=== PATIENT | female | born 1965 | race Caucasian/White ===

== ENCOUNTER 2022-04-19 08:31 | Outpatient (CLI) | payer OTHER, SELFPAY ==
--- NOTE | ~2022-04-19 | MM_ITS ---
EXAMINATION: MM screening [facility] w gretta HISTORY: Screening TECHNIQUE: Craniocaudal and mediolateral oblique 3-D tomosynthesis images were obtained and synthetic 2-D images were generated. CAD analysis was submitted and interpreted. COMPARISON: No prior mammogram is available for comparison at this institution. BREAST PARENCHYMAL COMPOSITION: There are scattered areas of fibroglandular density. FINDINGS: There is no evidence of suspicious mass, calcification, or architectural distortion to sugg est malignancy in either breast. There has been no suspicious interval change. IMPRESSION: 1. No mammographic evidence of malignancy. 2. Recommend routine screening mammography in one year. BI-RADS Category 1: Negative Reviewed, dictated and finalized at location A.
== END 2022-04-19 08:32 | disposition home or self-care (01) ==
LOC: CHSIMG 08:32
PROVIDERS: PCP Family Medicine; Visit Provider Family Medicine
DX: Z12.31 Encounter for screening mammogram for malignant neoplasm of breast (principal)
CPT/HCPCS: 77063; 77067

== ENCOUNTER 2023-05-01 08:17 | Outpatient (CLI) | payer OTHER, SELFPAY ==
--- NOTE | ~2023-05-01 | MM_ITS ---
EXAMINATION: MM screening [facility] w gretta HISTORY: Screening TECHNIQUE: Craniocaudal and mediolateral oblique 3-D tomosynthesis images were obtained and synthetic 2-D images were generated. CAD analysis was submitted and interpreted. COMPARISON: 04/19/2022 FINDINGS: Breast composed of scattered areas of fibroglandular density. There is no evidence of suspi cious mass, calcification, or architectural distortion to suggest malignancy in either breast. There has been no suspicious interval change. IMPRESSION: 1. No mammographic evidence of malignancy. 2. Recommend routine screening mammography in one year. BI-RADS Category 1: Negative Reviewed, dictated and finalized at location A.
== END 2023-05-01 08:18 | disposition home or self-care (01) ==
LOC: CHSIMG 08:18
PROVIDERS: PCP Family Medicine; Visit Provider Family Medicine
DX: Z12.31 Encounter for screening mammogram for malignant neoplasm of breast (principal)
CPT/HCPCS: 77063; 77067

== ENCOUNTER 2024-05-05 12:26 | Outpatient (CLI) | payer OTHER, SELFPAY ==
--- NOTE | ~2024-05-05 | MM_ITS ---
EXAMINATION: MM screening [facility] BI w gretta HISTORY: Screening TECHNIQUE: Craniocaudal and mediolateral oblique 3-D tomosynthesis images were obtained and synthetic 2-D images were generated. CAD analysis was submitted and interpreted. COMPARISON: Comparison to multiple prior studies sequentially, with oldest reviewed study dated 11/2021. BREAST PARENCHYMAL COMPOSITION: There are scattered areas of fibroglandular density. FINDINGS: There is no evidence of suspicious mass, calcification, or architectural distortion to sugg est malignancy in either breast. There has been no suspicious interval change. IMPRESSION: 1. No mammographic evidence of malignancy. 2. Recommend routine screening mammography in one year. BI-RADS Category 1: Negative Reviewed, dictated and finalized at location B.
== END 2024-05-05 12:27 | disposition home or self-care (01) ==
LOC: CHSIMG 12:28
PROVIDERS: PCP Family Medicine; Visit Provider Family Medicine
DX: Z12.31 Encounter for screening mammogram for malignant neoplasm of breast (principal)
CPT/HCPCS: 77063; 77067

== ENCOUNTER 2024-12-18 07:00 | Outpatient (CLI) | payer OTHER, SELFPAY ==
--- NOTE | ~2024-12-18 | XR_ITS ---
XR cervical spine 4-5V 12/18/2024 07:31 Indication: Cervicalgia Procedure: 4 view cervical spine Comparison: No prior studies for comparison. Findings: Straightening of cervical lordosis. There is disc narrowing at C5-6 and C6-7. There is face t hypertrophy at these levels. Lung apices are normal. Odontoid process is is not well visualized on the AP view, although grossly unremarkable on lateral view. No prevertebral soft tissue swelling. The re is multilevel uncinate hypertrophy. Impression: 1: Moderate cervical spondylosis with straightening of cervical lordosis. Reviewed, dictated and finalized at location A. Impression: 1: Moderate cervical spondylosis with straightening of cervical lordosis.
--- OUTSIDE RECORDS SUMMARY | 2024-12-18 07:04 | XMS_ITS ---
Author Organization [facility] [employer] [facility] Address [address] [place] [address] [address] Care Team Providers Care Senior Court Office Assistant Name Role Phone Jamee STOCKTON, Rehan Primary Care Provider Unavailab Chandler Braga Unavailable [phone] REASON FOR VISIT Prescription Request Social History Sex Assigned At : Social History Observation Description Sex Assigned At Female Encounters Encounter Location Date Provider Diagnosis [facility] [employer] [address] [address] 11/26/2024 Chandler Kan Plan Of Treatment Next Appt Details Provider Name:Chandler alvarez, 12/30/2024 04:30:00 PM, [address] [place] [address], [address], [address], Provider Name:Chandler alvarez, 03/23/2025 01:00:00 PM, [address] [place] [address], [phone], Progress Notes * BRANDY POLLOCKB: 4 (59 yo F)Acc No.[id number]:11/26/2024 Patient: ZOE GIFFORD :1965 A ge:59 Y S ex:Female Address:[facility] [address] , [place], [address] * true * Date: Generated for Printi ng/Faxing/eTransmitting on: 0 12/18/2024 07:04 AM CDT
--- OUTSIDE RECORDS SUMMARY | 2024-12-18 07:05 | XMS_ITS ---
Author Organization [facility] [employer] [facility] Address [address] [place] [address] [address] Care Team Providers Care Warehouse Freight Handler Name Role Phone Jamee STOCKTON, Rehan Primary Care Provider UnavailChandler Babcock Unavailable [phone] REASON FOR VISIT RE:Prescription Request Social History Sex Assigned At : Social History Observation Description Sex Assigned At Female Encounters Encounter Location Date Provider Diagnosis [facility] [email or web address] [place] [id number] [facility] [address] [address] 11/27/2024 Chandler Kan Plan Of Treatment Next Appt Details Provider Name:Chandler alvarez, 12/30/2024 04:30:00 PM, [address] [place] [address], [address], [address], Provider Name:Chandler alvarez, 03/23/2025 01:00:00 PM, [address] [place] [address], [phone], Progress Notes * BRANDY POLLOCKB: 4 (59 yo F)Acc No.[id number]:11/27/2024 Patient: ZOE GIFFORD :1965 A ge:59 Y S ex:Female Address:[facility], [place], [address] * true * Date: Generated for Printi ng/Faxing/eTransmitting on: 0 12/18/2024 07:04 AM CDT
--- OUTSIDE RECORDS SUMMARY | 2024-12-18 07:05 | XMS_ITS ---
Author Organization [facility] [employer] Address [address] [place] [address] Care Team Providers Care Spotlight Operator Name Role Phone Jamee STOCKTON, Rehan Primary Care Provider Unavailab earnestine Lucius Chandler Unavailable [phone] Allergies No Known Allergies Results Component Value Reference Range Notes UDT Reviewed date:12/01/2024 04:17:40 PM Interpretation: Performing Lab: Notes/Report: THC N 0 - 50 ng/ml Cocaine N 0 - 300 ng/ml Amphetamine N 0 - 1000 ng/ml Buprenorphine (BUP) N 0 - 10 ng/ml Secobarbital (Bar) N 0 - 300 ng/ml Oxazepam (BZO) N 0 - 300 ng/ml 5-juwnfetqoi-6,2-ctpgjciq-3,3-diphenylpyrrolidine (ISABELLA P) N 0 - 300 ng/ml Methamphetamine (MET) N 0 - 1000 ng/ml Methylenedioxymethamphetamine (MDMA) N 0 - 500 ng/ml Morphine (MOP 300/BWQ4974) N 0 - 300 ng/ml Methadone (MTD) N 0 - 300 ng/ml Phencyclidine (PCP) N 0 - 25 ng/ml Nortriptyline (TCA) N 0 - 1000 ng/ml Oxycodone N 0 - 300 ng/ml x N 0 - 300 ng/ml REASON FOR VISIT Follow Up, Depression screening positive, Elevated or Hypertensive blood pressure reading, UDT Visit, UDT done Medications Medication SIG (Take, Route, Fr equency, Duration) Notes Start Date End Date Status traZODone HCl 50 MG take 2-3 tablets at bedtime Oral Once a day for 90 days As needed Active Sertraline HCl 100 MG 1 tablet Oral Once a day for 90 days Active Naltrexone HCl 50 MG 1 tablet Orally Onc e a day for 30 days 12/01/2024 01/30/2025 Active Social History Tobacco Use: Social History Observation Description Date Details (start date - stop date) Unknown Sex Assigned At : Social History Observation Description Sex Assigned At Female Tobacco Control (Standard) Question Answer Notes Tobacco use: Uses tobacco in other forms Vital Signs Blood pressure systolic 150 mm Hg 12/02/19 25 Blood pressure diastolic 77 mm Hg 025 Heart Rate 63 /min 12/01/2024 Height 63 in 12/01/2024 Weight 121.4 lbs 12/01/2024 BMI 21.5 kg/m2 12/01/2024 Height-cm 160.02 cm 12/01/2024 Weight-kg 55.07 kg 12/01/2024 Encounters Encounter [facility] Date [facility] [address] [address] 12/01/2024 Chandler Kan Encounter for screen ing for depression Z13.31 ; Encounter for screening for cardiovascular disorders Z13.6 ; Dietary counseling and surveillance Z71.3 ; Nicotine use Z72.0 ; Generalized anxiety disorder F41.1 ; Major depressive disorder, single episode, in full remission F32.5 ; Insomnia due to other mental disorder F51.05 and Alcohol use disorder F10.90 Assessments Encounter Date Diagnosis (ICD Code) Assessment Notes Treatment Notes Treatment Clinical Notes Section Notes 12/01/2024 Encounter for screening for depression (ICD-10 - Z13.31) = 12/01/2024 Encounter for screening for cardiovascular disorders (ICD-10 - Z13.6) = 12/01/2024 Dietary counseling and surveillance (ICD-10 - Z71.3) = 12/01/2024 Nicotine use (ICD-10 - Z72.0) = 12/01/2024 Generalized anxiety disorder (ICD-10 - F41.1) stable = 12/01/2024 Major depressive disorder, single episode, in full remission (ICD-10 - F32.5) = 12/01/2024 Insomnia due to other mental disorder (ICD-10 - F51.05) = 12/01/2024 Alcohol use disorder (ICD-10 - F10.90) attends AA meetings = Plan Of Treatment Medication Medication Name Sig Start Date Stop Date Notes traZODone HCl 50 MG take 2-3 tablets at bedtime Oral Once a day for 90 days Sertraline HCl 100 MG 1 tablet Oral Once a day for 90 days Naltrexone HCl 50 MG 1 tablet Orally Onc e a day for 30 days 12/01/2024 01/30/2025 Treatment Notes Assessment Notes Generalized anxiety disorder stable Alcohol use disorder attends AA meetings Next Appt Details Follow Up: 4 Weeks, Reason: f/u alcohol use d/o Provider Name:Chandler alvarez, 12/30/2024 04:30:00 PM, [address], [place] [address], [place], [address], Provider Name:Chandler alvarez, 03/23/2025 01:00:00 PM, [address], [facility] [address], [place], [address], Progress Notes * BRANDY GONZALEZB: 4 (59 yo F)Acc No.[id number]:12/01/2024 Patient: VALERIE GIFFORDA Provider: RHINA RAMIREZ :1965 A ge:59 Y S ex:Female Date:12/01/2024 Address:[address] [place], [place] [id number] Pcp:Rehan Mancuso MD Subjective: * Chief Complaints: * 1 . Follow Up. 2. Depression screening positive. 3. Elevated or Hypertensive blood pressure reading. 4. UDT Visit. 5. UDT done. * HPI: D epression Screening: ARANZA-7 (2018 Edition) F eeling nervous, anxious, or on edge N ot at all N ot being able to stop or control worrying?Not at all W orrying too much about different things N ot at all T rouble relaxing N ot at all B eing so restless that it is hard to sit still N ot at all B ecoming easily annoyed or irritable N ot at all F eeling afraid as if something awful might happen N ot at all T otal ARANZA-7 Score 0 I f you checked any problems, how difficult have they made it for you to do your work, take care of things at home, or get along with other people? N ot difficult at all I nterpretation of Total ( 0 to 4) No Anxiety [place]-Suicide Severity Rating Scale: Suicide Risk (CSRS-screener) i n the past one month Have you wished you were or wished you could go to sleep and not wake up? N o i n the past one month Have you actually had any thoughts of killing yourself? N o H ave you ever done anything, started to do anything, or prepared to do anything to end your life? N o D epression screening: PHQ-9 L ittle interest or pleasure in doing things?Several days F eeling down, depressed, or hopeless M ore than half the days T rouble falling or staying asleep, or sleeping too much S everal days F eeling tired or having little energy S everal days P oor appetite or overeating M ore than half the days F eeling bad about yourself or that you are a failure, or have let yourself or your family down S everal days T rouble concentrating on things, such as reading the newspaper or watching television N ot at all M oving or speaking so slowly that other people could have noticed; or the opposite, being so fidgety or restless that you have been moving around a lot more than usual N ot at all T houghts that you would be better off or of hurting yourself in some way N ot at all T otal Score 8 I nterpretation M ild Depression Intervention D epression Screening Findings P ositve F ollow-Up for Depression M [facility] treatment assessment, Patient follow-up to return when and if necessary S uicide Risk Assessment Performed 0 12/01/2024 A dditional Evaluation for Depression P sychiatric interview and evaluation N tarah of the standardized tool used for adult depression screening: P atient Health Questionnaire (PHQ-9) H istory of Presenting Problem: Anxiety O nset: years ago. stable. Depression O nset: years ago. has been in remission. She has grief since her brother last week, feels guilt. . Grief f eels grief over her brother's passing. Substance abuse s tarted to drink heavy in 2017 when her dad . Is drinking up to a 12 pack of beer a day. States she is going to AA. Has not had any alcohol since Sunday. Not craving alcohol. . Psychotherapy s he is participating in counseling. Pt was seen today and Urine drug screen was done. * Medical History: P roblems: Generalized anxiety disorder, Insomnia disorder related to another mental disorder, Major depression in full remission, ,. * Social History: T obacco Use: T obacco Control (Standard) T obacco use: U ses tobacco in other forms M igrated Social History: M igrated Social History: Alcohol Intake: None 12/11/2023,Tobacco Years: Former smoker 12/11/2023. * Medications: T aking traZODone HCl 50 MG Tablet take 2 tablets at bedtime Oral Once a day As needed, Taking Sertraline HCl 100 MG Tablet 1 tablet Oral Once a day , Medication List reviewed and reconciled with the patient * Allergies: N .K.D.A. Objective: * Vitals: B P:150/77mm Hg, HR:63/min, Wt:121.4lbs, Wt-k.07 kg, Ht: 63 in, Ht-cm: 160.02 cm, BMI:21.5Index, Body Surface Area: 1.56. * Examination: P sychiatry: Appearance: w ell-groomed, well-nourished, .... Affect / mood: a ppropriate, full range. Attention: g ood. Attitude: c ooperative. Suicidal ideation: n one. Memory status: n o impairment noted. Degree of awareness of surroundings: w ithin normal limits.? Delusions: n o. Hallucinations: n o. Insight: g ood. Intellectual functioning: n o impairment noted. Judgement: g ood. Orientation: a wake, alert and oriented x 3. Perceptual disorders: n o perceptual disorder noted. Psychomotor activity: w ithin normal range. Speech / language: a ppropriate pitch/modulation, clear and coherent, normal rate, volume, and articulation (RVR), proper grammar used. Thought content: a ppropriate. Thought process: i ntact. Assessment: * Assessment: 1. E ncounter for screening for depression - Z13.31 2 . E ncounter for screening for cardiovascular disorders - Z13.6 3 . D ietary counseling and surveillance - Z71.3 4 . N icotine use - Z72.0 5 . G eneralized anxiety disorder - F41.1 6 . M ajor depressive disorder, single episode, in full remission - F32.5 7 . I nsomnia due to other mental disorder - F51.05 ?8. A lcohol use disorder - F10.90 = Plan: * Treatment: 2. M ajor depressive disorder, single episode, in full remission Refill Sertraline HCl Tablet, 100 MG, 1 tablet, Oral, Once a day, 90 days, 90 Tablet, Refills 2.? 3. I nsomnia due to other mental disorder Refill traZODone HCl Tablet, 50 MG, take 2-3 tablets at bedtime, Oral, Once a day As needed, 90 days, 270, Refills 0. 4. A lcohol use disorder Start Naltrexone HCl Tablet, 50 MG, 1 tablet, Orally, Once a day, 30 days, 30 Tablet, Refills 1.? Notes: attends AA meetings * Labs: * L ab: UDT (Collection Date & Time - 12/01/2024) Value Reference Range T HC N 0 - 50 ng/ml * C ocaine N 0 - 300 ng/ml * A mphetamine N 0 - 1000 ng/ml * B uprenorphine (BUP) N 0 - 10 ng/ml * S ecobarbital (Bar) N 0 - 300 ng/ml * O xazepam (BZO) N 0 - 300 ng/ml * 2 -ethylidene-1,1-lctixqzy-9,3-diphenylpyrrolidine (EDDP) N 0 - 300 ng/ml * M ethamphetamine (MET) N 0 - 1000 ng/ml * M ethylenedioxymethamphetamine (MDMA) N 0 - 500 ng/ml * M orphine (MOP 300/CTF1855) N 0 - 300 ng/ml * M ethadone (MTD) N 0 - 300 ng/ml * P hencyclidine (PCP) N 0 - 25 ng/ml * N ortriptyline (TCA) N 0 - 1000 ng/ml * O xycodone N 0 - 300 ng/ml * x N 0 - 300 ng/ml * Procedure Codes: G 8950 PREHTN/HTN BP DOC INDCD F/U DOC, 57521 DRUG TST PRSMV READ INSTRMNT ASSTD DIR OPT OBS, 53833 BEHAV ASSMT W/SCORE & DOCD/STAND INSTRUMENT, G9902 Pt scrn tbco and id as user, G8431 CLIN DEPRESSION SCREEN DOC, G8753 MOST RECENT SYSTOLIC BP >= 140MM HG * Preventive Medicine: Counseling: B P Management: FIRST HYPERTENSIVE BP READING FOLLOW-UP PLAN: F ollow-up 1 month Follow up with your PCP LIFESTYLE RECOMMENDATION: L ifestyle education REFERRAL TO ALTERNATIVE / PRIMARY CARE PROVIDER: R rolly to general medical service WEIGHT REDUCTION RECOMMENDATION: W eight-reducing diet education DIETARY RECOMMENDATIONS: D iet education Dietary Healthy-Heart Diet C ommunication to patient: Counseled the Patient on tobacco use; cessation provided 0 12/01/2024 Date Counseled the Patient on smoking cessation; education provided D ate Counseled the Patient on smoking effects; education provided D ate S moking Cessation counseling done Discuss the importance of quitting smoking. * Follow Up: 4 Weeks (Reason: f/u alcohol use d/o) * Billing Information: * Visit Code: * Procedure Codes: G8950 PREHTN/HTN BP DOC INDCD F/U DOC. 51124 DRUG TST PRSMV READ INSTRMNT ASSTD DIR OPT OBS. 59220 BEHAV ASSMT W/SCORE & DOCD/STAND INSTRUMENT. G9902 Pt scrn tbco and id as user. G8431 CLIN DEPRESSION SCREEN DOC. G8753 MOST RECENT SYSTOLIC BP >= 140MM HG. * Electronic signature of RHINA Fine on 12/18/2024 at 07:04 AM CDT Sign off status: Pending * Provider: RHINA RAMIREZ Date: 0 12/01/2024 Generated for Marie yoder/Elena/Sara on: 0 12/18/2024 07:04 AM CDT History and Physical Notes * HPI (History of Present Illness) Category Sub-Category Detail Notes Category Not es History of Presenting Problem Anxiety Onset: years ago. stable Pt was seen to day and Urine drug screen was done Depression Onset: years ago. garcía s been in remission. She has grief since her brother last week, feels guilt. Substance abuse started to drink leda gill in 2017 when her dad . Is drinking up to a 12 pack of beer a day. States she is going to AA. Has not had any alcohol since Sunday. Not craving alcohol. Psychotherapy she is participating in counseling Grief feels grief over her brother's passing Depression screening PHQ-9 Little inte rest or pleasure in doing things: Several days Feeling down, depressed, or hopeless: Mo re than half the days Trouble falling or staying asleep, or sl eeping too much: Several days Feeling tired or having little energy: S everal days Poor appetite or overeating: More than h tran the days Feeling bad about yourself o r that you are a failure, or have let yourself or your family down: Several days Trouble concentrating on thi ngs, such as reading the newspaper or watching television: Not at all Moving or speaking so slowly that other people could have noticed; or the opposite, being so fidgety or restless that you have been moving around a lot more than usual: Not at all Thoughts that you would be b jairo off or of hurting yourself in some way: Not at all Total Score: 8 Interpretation: Mild Depression Intervention Depression Screening Findings: P ositve Follow-Up for Depression: [facility] treatment assessment, Patient follow-up to return when and if necessary Suicide Risk Assessment Performed: 12/01 Additional Evaluation for Depression: Ps ychiatric interview and evaluation Name of the standardized too l used for adult depression screening:: Patient Health Questionnaire (PHQ-9) Depression Screening ARANZA-7 (2018 Edition) Feelin g nervous, anxious, or on edge: Not at all Not being able to stop or control worryi ng: Not at all Worrying too much about different things : Not at all Trouble relaxing: Not at all Being so restless that it is hard to sit still: Not at all Becoming easily annoyed or irritable: No t at all Feeling afraid as if something awful katy ht happen: Not at all Total ARANZA-7 Score: 0 If you checked any problems, how difficult have they made it for you to do your work, take care of things at home, or get along with other people?: Not difficult at all Interpretation of Total: (0 to 4) No Anx iety [place]-Suicide Severity Rating Scale Suicide Risk (CSRS-screener) in the past one month Have you wished you were or wished you could go to sleep and not wake up?: No in the past one month Have y ou actually had any thoughts of killing yourself?: No Have you ever done anything, started to do anything, or prepared to do anything to end your life?: No Examination Category Sub-Category Detail Notes Category Not es Psychiatry Appearance: well-groomed, well-nourished , ... Attitude: cooperative Psychomotor activity: within normal rang e Attention: good Degree of awareness of surroundings: wit hin normal limits Orientation: awake, alert and kindra ented x 3 Affect / mood: appropriate, full ra nge Speech / language: appropriate pitch/mo dulation, clear and coherent, normal rate, volume, and articulation (RVR), proper grammar used Insight: good Judgement: good Thought process: intact Thought content: appropriate Perceptual disorders: no perceptual diso rder noted Suicidal ideation: none Intellectual functioning: no impairment noted Memory status: no impairment noted Delusions: no Hallucinations: no
--- OUTSIDE RECORDS SUMMARY | 2024-12-18 07:05 | XMS_ITS | Patient Health Record ---
Author Organization [facility] [employer] Address [address] [place] [address] Care Team Providers Care Customs Patrol Officer Name Role Phone Jamee STOCKTON, Rehan Primary Care Provider Unavailab Chandler Braga Unavailable [phone] Migration, Provider Unavailable Unavailable Allergies No Known Allergies Results Component Value Reference Range Notes UDT Reviewed date:12/01/2024 04:17:40 PM Interpretation: Performing Lab: Notes/Report: THC N 0 - 50 ng/ml Cocaine N 0 - 300 ng/ml Amphetamine N 0 - 1000 ng/ml Buprenorphine (BUP) N 0 - 10 ng/ml Secobarbital (Bar) N 0 - 300 ng/ml Oxazepam (BZO) N 0 - 300 ng/ml 0-nsiryofrmf-5,1-txdmikua-5,3-diphenylpyrrolidine (ISABELLA P) N 0 - 300 ng/ml Methamphetamine (MET) N 0 - 1000 ng/ml Methylenedioxymethamphetamine (MDMA) N 0 - 500 ng/ml Morphine (MOP 300/[id number]) N 0 - 300 ng/ml Methadone (MTD) N 0 - 300 ng/ml Phencyclidine (PCP) N 0 - 25 ng/ml Nortriptyline (TCA) N 0 - 1000 ng/ml Oxycodone N 0 - 300 ng/ml x N 0 - 300 ng/ml Reason For Referral No Information Medications Medication SIG (Take, Route, Fr equency, [...] Tobacco use: Uses tobacco in other forms Problems Problem Type SNOMED Code ICD Code Onset Dates Problem Status W/U Status Risk Notes Problem Major depression, single episode, in complete remission (96222089) Major depressive disorder, single episode, in full remission (F32.5) Active confirmed Problem Generalized anxiety disorder (78877523) Generalized anxiety disorder (F41.1) Active confirmed Problem Insomnia disorder related to another mental disorder (78211469) Insomnia due to other mental 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) Active confirmed Vital Signs Heart Rate 63 /min 12/01/2024 Height-cm 160.02 cm 12/01/2024 Blood pressure diastolic 77 mm Hg 12/01/2024 Weight-kg 55.07 kg 12/01/2024 Height 63 in 12/01/2024 Blood pressure systolic 150 mm Hg 12/01/2024 Weight 121.4 lbs 12/01/2024 BMI 21.5 kg/m2 12/01/2024 Encounters Encounter Location Date Provider Diagnosis [facility] [address] [facility] [address] [place] [address] 12/01/2024 Chandler Kan Encounter for screening for depression Z13.31 ; Encounter for screening for cardiovascular disorders Z13.6 ; Dietary counseling and surveillance Z71.3 ; Nicotine use Z72.0 ; Generalized anxiety disorder F41.1 ; Major depressive disorder, single episode, in full remission F32.5 ; Insomnia due to other mental disorder F51.05 and Alcohol use disorder F10.90 [facility] [address] [facility] [address] [place] [address] 09/24/2024 Chandler Kan Generalized anxiety disorder F41.1 ; Major depressive disorder, single episode, in full remission F32.5 and Insomnia due to other mental disorder F51.05 [facility] [address] [facility] [address] [place] [address] 02/02/2024 Provider Migration [facility] [address] [facility] [address] [place] [address] 02/03/2024 Provider Migration [place] [address] [facility] [address] [place] [address] 08/18/2024 Chandlerstephanie Boudreauxoza [place] [address] [facility] [address] [facility] [address] [place] [address] 09/24/2024 Chandler Kan [place] [address] [facility] [address] [place] [address] 10/09/2024 Chandlerstephanie Kan Insomnia due to othe r mental disorder F51.05 and Major depressive disorder, single episode, in full remission F32.5 [facility] [address] [facility] [address] [place] [address] 11/26/2024 Chandlerstephanie Boudreauxoza [facility] [address] [address] 11/27/2024 Chandler Kan Assessments Encounter Date Diagnosis (ICD Code) Assessment Notes Treatment Notes Treatment Clinical Notes Section Notes 09/24/2024 Generalized anxiety disorder (ICD-10 - F41.1) stable 1. Grief and guilt related to brother's : - Patient processing emotions and seeking support from family and friends. Plan: - Encourage patient to continue processing emotions and seeking support. - Monitor for any signs of depression or anxiety that may require further intervention. 2. Anxiety: - Patient reports sertraline is effective. - Does not feel the need for lorazepam refill at this time. Plan: - Continue sertraline as prescribed for anxiety management. 3. Insomnia related to menopause: - Patient reports good response to trazodone for sleep. Plan: - Continue trazodone as prescribed for insomnia management. 4. Medication refills: Plan: - Refill sertraline and trazodone prescriptions for 90 days with one refill. - Ensure prescriptions are sent to [facility] pharmacy for home delivery. 5. Follow-up: - Schedule follow-up appointment in 6 months. - Encourage patient to reach out if any concerns or medication refills are needed before the next appointment. 10/09/2024 Insomnia due to other mental disorder (ICD-10 - F51.05) 12/01/2024 Encounter for screening for depression (ICD-10 - Z13.31) = 10/09/2024 Major depressive disorder, single episode, in full remission (ICD-10 - F32.5) 12/01/2024 Encounter for screening for cardiovascular disorders (ICD-10 - Z13.6) = 09/24/2024 Major depressive disorder, single episode, in full remission (ICD-10 - F32.5) 1. Grief and guilt related to brother's : - Patient processing emotions and seeking support from family and friends. Plan: - Encourage patient to continue processing emotions and seeking support. - Monitor for any signs of depression or anxiety that may require further intervention. 2. Anxiety: - Patient reports sertraline is effective. - Does not feel the need for lorazepam refill at this time. Plan: - Continue sertraline as prescribed for anxiety management. 3. Insomnia related to menopause: - Patient reports good response to trazodone for sleep. Plan: - Continue trazodone as prescribed for insomnia management. 4. Medication refills: Plan: - Refill sertraline and trazodone prescriptions for 90 days with one refill. - Ensure prescriptions are sent to [facility] pharmacy for home delivery. 5. Follow-up: - Schedule follow-up appointment in 6 months. - Encourage patient to reach out if any concerns or medication refills are needed before the next appointment. 09/24/2024 Insomnia due to other mental disorder (ICD-10 - F51.05) 1. Grief and guilt related to brother's : - Patient processing emotions and seeking support from family and friends. Plan: - Encourage patient to continue processing emotions and seeking support. - Monitor for any signs of depression or anxiety that may require further intervention. 2. Anxiety: - Patient reports sertraline is effective. - Does not feel the need for lorazepam refill at this time. Plan: - Continue sertraline as prescribed for anxiety management. 3. Insomnia related to menopause: - Patient reports good response to trazodone for sleep. Plan: - Continue trazodone as prescribed for insomnia management. 4. Medication refills: Plan: - Refill sertraline and trazodone prescriptions for 90 days with one refill. - Ensure prescriptions are sent to [facility] pharmacy for home delivery. 5. Follow-up: - Schedule follow-up appointment in 6 months. - Encourage patient to reach out if any concerns or medication refills are needed before the next appointment. 12/01/2024 Dietary counseling and surveillance (ICD-10 - Z71.3) = 12/01/2024 Nicotine use (ICD-10 - Z72.0) = 12/01/2024 Generalized anxiety disorder (ICD-10 - F41.1) stable = 12/01/2024 Major depressive disorder, single episode, in full remission (ICD-10 - F32.5) = 12/01/2024 Insomnia due to other mental disorder (ICD-10 - F51.05) = 12/01/2024 Alcohol use disorder (ICD-10 - F10.90) attends AA meetings = Plan Of Treatment Next Appt Details Provider Name:Chandler alvarez, 12/30/2024 04:30:00 PM, [address], [place], [address], Provider Name:Chandler alvarez, 03/23/2025 01:00:00 PM, [address], [place], [address], Insurance Providers Payer Name Payer Address Payer Phone Subscriber Number Group Number Insured Name Patient Relationship to Insured Coverage Start Date Coverage End Date [facility] [address] [place] [phone] [id number] ZOE GONZALEZ Self - patient is the insured Medical (General) History Medical History History ICD Code Problems: Generalized anxiety disorder Insomnia disorder related to another men geronimo disorder Major depression in full remission ,
--- OUTSIDE RECORDS SUMMARY | 2024-12-18 07:05 | XMS_ITS | Clinical Summary ---
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 Gender Identity Not on file Sexual Orientation Not on file Plan of Treatment Health Maintenance Due Date Last Done Comments Cervical Cancer Screening Pa p Smear (Age 30 to 64) Every 3 Years 1964 Colorectal Cancer Screening Colonoscopy (10 Years) 1964 Annual Physical 1967 Hepatitis C 1982 DTaP, Tdap and Td Vaccines ( 1 - Tdap) 1983 Cervical Cancer Screening Pa p with HPV Testing (Age 30 to 64) Every 5 Years 1994 Cervical Cancer Screening with HPV 1994 Mammogram Screening 2004 Zoster Vaccines (1 of 2) 2014 COVID-19 Vaccine (2023-2 5 season) 2024 Influenza Adult (#1) 2024 RSV Immunization or 60+ Years (1 - 1-dose 75+ series) 2039 Meningococcal B Vaccine Aged Out No l onger eligible based on patient's age to complete this topic Meningococcal Vaccine Aged Out No den hattie eligible based on patient's age to complete this topic Pneumococcal Vaccine: Pediat rics (0 to 5 Years) and At-Risk Patients (6 to 64 Years) Aged Out No longer eligible b ased on patient's age to complete this topic RSV Immunizations Under 20 Months Aged Out No longer eligible based on patient's age to complete this topic
--- OUTSIDE RECORDS SUMMARY | 2024-12-18 07:05 | XMS_ITS | Clinical Summary ---
Author Organization [facility] Address [address] [place] [address] Care Team Providers Care Fur Dry Cleaner Hand Name Role Phone Rehan Mancuso MD Primary Care Provider [phone] Source Comments [facility],non-owned Affiliates and Associated Physician Practices is amultiple site organization consisting of ambulatory clinics and hospital sitesin [place], [place], [place] and [place]. This disclosure is being madepursuant to the Care Everywhere program and may not contain all information available regarding this patient. Last updated 18.[facility] Allergies Active Allergy Reactions Criticality Noted Date Comments Fluoxetine 05/24/2017 Medications * Be aware that medications may not be up to date on this document. Alwaysverify current medications with the patient. Medication Sig Dispensed Refills Start Date End Date Status SERTRALINE HCL PO Active TRAZODONE HCL PO Active LORAZEPAM PO Active Social History Tobacco Use Types Packs/Day Years Used Date Smoking Tobacco: Former Smokeless Tobacco: Former Sex and Gender Information Value Date Recorded Sex Assigned at Not on file Gender Identity Female 05/24/2017 12:27 PM CDT Sexual Orientation Not on file Last Filed Vital Signs Vital Sign Reading Time Taken Comments Blood Pressure 104/70 05/24/2017 12:21 PM CDT Pulse 74 05/24/2017 12:21 PM CDT Temperature 36.7 C (98 F) 05/24/2017 12:21 PM CDT Respiratory Rate 18 05/24/2017 12:21 PM CDT Oxygen Saturation 98% 05/24/2017 12:21 PM CDT Inhaled Oxygen Concentration - - Weight 64 kg (141 lb) 05/24/2017 12:21 PM CDT Height 160 cm (5' 3 ) 05/24/2017 12:21 PM CDT Body Mass Index 24.98 05/24/2017 12:21 PM CDT Plan of Treatment Health Maintenance Due Date Last Done Comments COLOGUARD (AGES 45-75) - COL ON CA SCREENING 1964 COLON MONITORING 1964 COLONOSCOPY - COLON CA SCREENING 1964 CT COLONOGRAPHY - COLON CA SCREENING 1964 Colorectal Cancer Screening 1964 FIT - COLON CA SCREENING 1964 FLEX SIG - COLON CA SCREENING 1964 LIPID TESTING 1964 MAMMOGRAM 1964 PAP SMEAR 1964 HIV SCREENING 1979 HEPATITIS C SCREENING 06/19/1982 DTAP/TDAP/TD VACCINES (1 - Tdap) 1983 PNEUMOCOCCAL VACCINE 50+ (1 of 1 - PCV) 2014 ZOSTER VACCINE (1 of 2) 2014 COVID-19 VACCINE ( - 2023-2 5 season) 2024 INFLUENZA VACCINE (#1) 2024 DEPRESSION SCREENING 09/17/2024 Respiratory Syncytial Virus (RSV) Vaccine Pt: or over 60 yrs (1 - 1-dose 75+ series) 2039 HEPATITIS B VACCINE Aged Out No longe r eligible based on patient's age to complete this topic HIB VACCINE Aged Out No longer eligi ble based on patient's age to complete this topic HPV VACCINE Aged Out No longer eligi ble based on patient's age to complete this topic MENINGOCOCCAL (Group B) VACC INE SHARED DECISION-MAKING Aged Out No longer eligibl e based on patient's age to complete this topic MENINGOCOCCAL GROUPS A/C/Y/W VACCINE Aged Out No longer eligible b ased on patient's age to complete this topic PNEUMOCOCCAL VACCINE Aged Out No long er eligible based on patient's age to complete this topic Care Teams Fur Dry Cleaner Hand Relationship Specialty Start Date End Date Rehan Mancuso MD PCP - General Family Medicine 05/24/17
[2024-12-18 07:26] LABS: Hematocrit 40.8 % (35.0-49.0); Immature Platelet Fraction Pct 3.7 % (1.0-7.0); Mean Corpuscular HGB Conc 31.9 g/dL (32-36); Mean Corpuscular Hemoglobin 28.3 pg (27.0-31.0); Mean Corpuscular Volume 88.9 fL (78.0-102.0); Mean Platelet Volume 10.2 fl (9.2-11.8); Platelet Count Result 297 K/mm3 (150-420); Red Blood Count 4.59 M/mm3 (4.20-5.40); Red Cell Distribution Width 12.3 % (11.6-14.4); White Blood Count 4.6 K/mm3 (4.8-10.8)
[2024-12-18 07:45] LABS: Hemoglobin A1C 5.6 % (<5.7)
[2024-12-18 08:44] LABS: Alanine Aminotransferase 17 U/L (14-59); Albumin Level 3.9 g/dL (3.4-5.0); Alkaline Phosphatase 84 U/L (46-116); Anion Gap 8 mmol/L (4-12); Aspartate Amino Transferase 14 U/L (15-37); Bilirubin,Total 0.5 mg/dL (0.00-1.00); Blood Urea Nitrogen 15 mg/dL (7-18); Calcium 9.4 mg/dL (8.5-10.1); Carbon Dioxide 32 mmol/L (21-32); Chloride 102 mmol/L (98-108); Estimated Glomerular Filt Rate > 60; Folic Acid 19.6 ng/mL (8.6->20); Glucose 88 mg/dL (70-99); Osmolality Calculated 293 mOsm/kg (285-295); Potassium 4.5 mmol/L (3.5-5.1); Sodium 142 mmol/L (136-145); Total Protein 7.3 g/dL (6.4-8.2); Vitamin B12 364 pg/mL (193-986)
[2024-12-18 08:49] LABS: Thyroid Stimulating Hormone Reflex 0.73 u/IU/mL (0.36-3.74)
[2024-12-23 19:28] LABS: Vitamin B6 39.9 ng/mL (2.1-21.7)
[2024-12-23 20:33] LABS: Vitamin B1 29 nmol/L (8-30)
== END 2024-12-18 07:01 | disposition home or self-care (01) ==
LOC: CHSLAB 07:02
PROVIDERS: PCP Family Medicine
DX: Z00.00 Encounter for general adult medical examination without abnormal findings (principal); F10.11 Alcohol abuse, in remission; R20.2 Paresthesia of skin; M54.2 Cervicalgia; M43.02 Spondylolysis, cervical region; M43.8X2 Other specified deforming dorsopathies, cervical region
CPT/HCPCS: 36415; 72050; 80053; 82607; 82746; 83036; 84207; 84425; 84443; 85027; 85055

== ENCOUNTER 2025-09-07 12:51 | Outpatient (CLI) | payer OTHER, SELFPAY ==
--- NOTE | ~2025-09-07 | CT_ITS ---
EXAMINATION:CT lung screening DATE: 09/07/2025 13:24 INDICATION: Personal history of nicotine dependence. TECHNIQUE: Computed tomography (CT) of the chest was performed without intravenous contrast. Automated exposure control and iterative reconstruction technique were employed. The dose-length product (DLP) was 82.99 mGy-cm. COMPARISON: None. FINDINGS: There is mild scarring at left lung apex. There is mild atelectasis bilaterally. No pleural effusion. The heart size is normal. No pericardial effusion. There is mild thoracic spondylosis. There is mild chronic anterior wedging of multiple thoracic vertebral bodies. IMPRESSION: 1. Lung-RADS category 2: Benign appearance or behavior. Continue annual screening with noncontrast low-dose chest CT in 12 months. Reviewed, dictated and finalized at location E. CANDY SPINNER IMPRESSION: 1. Lung-RADS category 2: Benign appearance or behavior. Continue annual screeni ng with noncontrast low-dose chest CT in 12 months.
== END 2025-09-07 12:52 | disposition home or self-care (01) ==
LOC: GOSHIMG 12:51
PROVIDERS: PCP Family Medicine; Visit Provider Family Medicine
DX: Z12.2 Encounter for screening for malignant neoplasm of respiratory organs (principal); Z87.891 Personal history of nicotine dependence
CPT/HCPCS: 71271

== ENCOUNTER 2025-09-13 12:18 | Emergency (ER) | payer OTHER, SELFPAY ==
[2025-09-13 12:22] VITALS: BP 128/86; PULSE 64; RESP 14; TEMP 36.8; O2SAT 100
--- OUTSIDE RECORDS SUMMARY | 2025-09-13 12:22 | XMS_ITS | Clinical Summary ---
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 Gender Identity Not on file Sexual Orientation [...] Screening with HPV 1994 Mammogram Screening 2004 Pneumococcal Vaccine: 50+ Ye ars (1 of 1 - PCV) 2014 Zoster Vaccines (1 of 2) 2014 COVID-19 Vaccine (2024-2 6 season) 2025 Influenza Adult (#1) 2025 RSV Immunization or 60+ Years (1 - 1-dose 75+ series) 2039 Hepatitis A Vaccines Aged Out No long er eligible based on patient's age to complete this topic Meningococcal B Vaccine Aged Out No l onger eligible based on patient's age to complete this topic Meningococcal Vaccine Aged Out No den hattie eligible based on patient's age to complete this topic RSV Immunizations Under 20 Months Aged Out No longer eligible based on patient's age to complete this topic
--- OUTSIDE RECORDS SUMMARY | 2025-09-13 12:22 | XMS_ITS | Clinical Summary ---
Author Organization [email or web address] Address [address] [place] [address] Care Team Providers Care Medical Record Consultant Name Role Phone Rehan Mancuso MD Primary Care Provider [phone] Source Comments [email or web address],non-owned Affiliates and Associated Physician Practices is amultiple site organization consisting of ambulatory clinics and hospital sitesin [place], [place], [place] and [place]. This disclosure is being madepursuant to the Care Everywhere program and may not contain all information available regarding this patient. Last updated 18.[email or web address] Allergies Active Allergy Reactions Criticality Noted Date Comments Fluoxetine 05/24/2017 Medications * Be aware that medications may not be up to date on this document. Alwaysverify current medications with the patient. SERTRALINE HCL PO Ac tive TRAZODONE HCL PO Act basil LORAZEPAM PO Active Social History Tobacco Use Types Packs/Day Years Used Date Smoking Tobacco: Former Smokeless Tobacco: Former Comments Unknown Sex and Gender Information Value Date Recorded Sex Assigned at Not on file Legal Sex Female 9:14 AM CDT Gender Identity Female 05/24/2017 12:27 PM CDT [...] 12:21 PM CDT Height 160 cm (5' 3) 05/24/2017 12:21 PM CDT Body Mass Index [...] SCREENING 1964 LIPID TESTING 1964 MAMMOGRAM 1964 HIV SCREENING 1979 HEPATITIS C SCREENING 06/19/1982 DTAP/TDAP/TD VACCINES (1 - Tdap) 1983 PNEUMOCOCCAL VACCINE 50+ (1 of 1 - PCV) 2014 ZOSTER VACCINE (1 of 2) 2014 DEPRESSION SCREENING 09/17/2024 COVID-19 VACCINE (1 - 2024-2 6 season) 2025 INFLUENZA VACCINE (#1) 2025 Respiratory Syncytial Virus (RSV) Vaccine Pt: or [...] on patient's age to complete this topic Insurance Care Teams Medical Record Consultant Relationship Specialty Start Date End Date Rehan Mancuso MD PCP - General Family Medicine 05/24/17
--- OUTSIDE RECORDS SUMMARY | 2025-09-13 12:22 | XMS_ITS | Patient Health Record ---
Author Organization [facility] [employer] Address [address] [place] [address] Care Team Providers Care Patient Access Registrar Name Role Phone Jamee STOCKTON, Rehan Primary Care Provider Unavailab Chandler Braga Unavailable [phone] Allergies No Known Allergies Results Component Value Reference Range Notes UDT Reviewed date:12/01/2024 04:17:40 PM Interpretation: Performing Lab: Notes/Report: Amphetamine (AMP) N 0 - 1000 ng/ml Buprenorphine (BUP) N 0 - 10 ng/ml Oxazepam (BZO) N 0 - 300 ng/ml Cocaine (MONROE) N 0 - 300 ng/ml Methamphetamine (mAMP) N 0 - 300 ng/ml Methylenedioxymethamphetamine (MDMA) N 0 - 500 ng/ml Morphine (MOP) N 0 - 25 ng/ml Methadone (MTD) N 0 - 300 ng/ml Oxycodone (OXY) N 0 - 300 ng/ml THC N 0 - 50 ng/ml x N 0 - 1000 ng/ml x N 0 - 1000 ng/ml x N 0 - 300 ng/ml x N 0 - 300 ng/ml x N 0 - 300 ng/ml Reason For Referral No Information Medications Medication SIG (Take, Route, Frequency, Duration) Notes Start Date End Date Status traZODone HCl 50 MG Tablet take 2-3 tabl ets at bedtime Oral Once a day; Duration: 90 days Active Sertraline HCl 100 MG Tablet 1 tablet Oral Once a day; Duration: 90 days Active Naltrexone HCl 50 MG Tablet 1 tablet Orally Once a day; Duration: 30 days Active Social History Tobacco Use: Social History Observation Description Date Details (start date - stop date) Unknown Sex Assigned At : Social History Observation Description Sex Assigned At Female Social History Tobacco Use: Social Info Question Answer Notes Tobacco Control (Standard) Tobacco use: Uses tobacco in other forms Additional Details Category Social Info Options Details Migrated Social History Migrated Social History Alcohol Intake: None 12/11/2023,Tobacco Years: Former smoker 12/11/2023 Problems Problem Type SNOMED Code ICD Code Onset Dates Problem Status W/U Status Risk Notes Problem Major depression, single episode, in complete remission (31083433) Major depressive disorder, single episode, in full remission (F32.5) 4 Active confirmed Problem Generalized anxiety disorder (12534503) Generalized anxiety disorder (F41.1) 4 Active confirmed Problem Insomnia disorder related to another mental disorder (03911442) Insomnia due to other mental 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) 4 Active confirmed Vital Signs Heart Rate 60 /min 12/30/2024 Height-cm 160.02 cm 12/30/2024 Blood pressure diastolic 84 mm Hg 12/30/2024 Weight-kg 55.34 kg 12/30/2024 Height 63 in 12/30/2024 Blood pressure systolic 135 mm Hg 12/30/2024 Weight 122 lbs 12/30/2024 BMI 21.61 kg/m2 12/30/2024 Encounters Encounter Location Date Provider Diagnosis [employer] [address] [facility] [address] [address] 09/24/2024 Chandler Kan Generalized anxiety disorder F41.1 ; Major depressive disorder, single episode, in full remission F32.5 and Insomnia due to other mental disorder F51.05 [employer] [address] [facility] [address] [address] 12/01/2024 Chandler Kan Encounter for screen ing for depression Z13.31 ; Encounter for screening for cardiovascular disorders Z13.6 ; Dietary counseling and surveillance Z71.3 ; Nicotine use Z72.0 ; Generalized anxiety disorder F41.1 ; Major depressive disorder, single episode, in full remission F32.5 ; Insomnia due to other mental disorder F51.05 and Alcohol use disorder F10.90 [employer] [address] [facility] [address] [facility] [address] [place] [address] 12/30/2024 Chandler Kan Major depressive disorder, single episode, in full remission F32.5 ; Generalized anxiety disorder F41.1 ; Insomnia due to other mental disorder F51.05 ; Nicotine use Z72.0 ; Encounter for screening for depression Z13.31 ; Encounter for screening for cardiovascular disorders Z13.6 ; Dietary counseling and surveillance Z71.3 and Alcohol use disorder F10.90 [facility] [employer] [facility] [address] [facility] [address] [place] [address] 09/24/2024 [facility]stephanie [facility] [address] [address] 10/09/2024 Chandlerstephanie Kan Insomnia due to othe r mental disorder F51.05 and Major depressive disorder, single episode, in full remission F32.5 [place] [id number] [facility] [address] [address] 11/26/2024 Chandlerstephanie Azula [place] [address] [address] [facility] [address] [address] 11/27/2024 [facility]phanie [facility] [address] [address] 04/21/2025 Chandlerstephanie Kan Assessments Encounter Date Diagnosis (ICD Code) Assessment Notes Treatment Notes Treatment Clinical Notes Section Notes 12/30/2024 Major depressive disorder, single episode, in full remission (ICD-10 - F32.5) = 09/24/2024 Generalized anxiety disorder (ICD-10 - F41.1) [...] refill. - Ensure prescriptions are sent to [facility] pharmacy for home delivery. 5. [...] for cardiovascular disorders (ICD-10 - Z13.6) = 10/09/2024 Major depressive disorder, single episode, in full remission (ICD-10 - F32.5) 09/24/2024 Major depressive disorder, single episode, in [...] refill. - Ensure prescriptions are sent to [facility] pharmacy for home delivery. 5. Follow-up: - Schedule follow-up appointment in 6 months. - Encourage patient to reach out if any concerns or medication refills are needed before the next appointment. 12/30/2024 Generalized anxiety disorder (ICD-10 - F41.1) stable = 12/30/2024 Insomnia due to other mental disorder (ICD-10 - F51.05) = 09/24/2024 Insomnia due to other mental disorder [...] refill. - Ensure prescriptions are sent to [facility] pharmacy for home delivery. 5. Follow-up: - Schedule follow-up appointment in 6 months. - Encourage patient to reach out if any concerns or medication refills are needed before the next appointment. 12/01/2024 Dietary counseling and surveillance (ICD-10 - Z71.3) = 12/01/2024 Nicotine use (ICD-10 - Z72.0) = 12/30/2024 Nicotine use (ICD-10 - Z72.0) = 12/01/2024 Generalized anxiety disorder (ICD-10 - F41.1) stable = 12/30/2024 Encounter for screening for depression (ICD-10 - Z13.31) = 12/30/2024 Encounter for screening for cardiovascular disorders (ICD-10 - Z13.6) = 12/01/2024 Major depressive disorder, single episode, in full remission (ICD-10 - F32.5) = 12/01/2024 Insomnia due to other mental disorder (ICD-10 - F51.05) = 12/30/2024 Dietary counseling and surveillance (ICD-10 - Z71.3) = 12/30/2024 Alcohol use disorder (ICD-10 - F10.90) attends [facility] meetings = 12/01/2024 Alcohol use disorder (ICD-10 - F10.90) attends AA meetings = 12/01/2024 Other 1. Alcohol Use Disorder: - Patient reports heavy alcohol consumption, typically 2 tall cans of beer daily, with episodes of up to a 12-pack. - Identifies boredom as a primary trigger, due to solitary lifestyle and work-related boredom. - Attending AA meetings for the past 3 weeks and has not consumed alcohol for 3 days. - Experiencing a headache, possibly related to alcohol withdrawal. - Expressed desire to stop drinking and seeking medication assistance. - No prior experience with naltrexone. Plan: - Prescribe naltrexone 50 mg PO daily to reduce alcohol cravings and consumption. - Perform urine drug screen to rule out presence of opioids before starting naltrexone. - Educate patient on potential side effects of naltrexone, including stomach complaints. - Advise patient that naltrexone can be taken at any time of day, but to take at night if it causes sleepiness. - Schedule follow-up appointment in approximately one month. 2. Depression: - Patient reports ongoing depression, contributing to decreased interest in previously enjoyed activities. - Currently taking sertraline 100 mg daily for management of depressive symptoms. Plan: - Continue sertraline 100 mg PO daily. - Continue weekly counseling sessions. 3. Insomnia: - Currently taking trazodone 50 mg for sleep. - Previous provider suggested she could take up to three 50 mg tablets if needed. Plan: - Continue trazodone 50 mg PO at bedtime, with flexibility to take 1-3 tablets (50-150 mg) as needed for sleep. = 12/30/2024 Other Zoe Pollock presents for follow-up of alcohol use disorder and medication management, reporting successful abstinence from alcohol with naltrexone treatment. Alcohol Use Disorder Assessment: Patient reports significant improvement with naltrexone 50 mg. She has maintained abstinence from alcohol since starting the medication. While cravings have subsided, she notes difficulty adjusting to a new lifestyle without alcohol, particularly when bored. Patient is actively engaging in recovery support, having transitioned from to a [facility]based [facility] program, which she attends weekly and finds more suitable. Plan: - Continue naltrexone 50 mg daily - Send 30-day supply to [facility] for immediate pickup - Send 90-day supply to [facility] for long-term use - Encourage continued participation in [facility] program - Reinforce importance of developing new habits and activities to replace alcohol use, such as daily biking Depression Assessment: Patient continues on sertraline for depression management. No specific complaints or concerns regarding mood were reported during this visit. Plan: - Continue sertraline at current dose Insomnia Assessment: Patient is using trazodone for sleep. A recent dose increase was prescribed but has not yet been received by the patient. Plan: - Continue trazodone - Confirm that updated prescription is sent to [facility] the note is transcribed using speech recognition software. It is a reflection of a visit with the patient. It might have some inaccuracy, including medication names and transcribing errors, though efforts have been made to correct them. = Plan Of Treatment No Information Insurance Providers Payer Name Payer Address Payer Phone Subscriber Number Group Number Insured Name Patient Relationship to Insured Coverage Start Date Coverage End Date [facility] [address] [place] [phone] [id number] ZOE POLLOCK Self - patient is the insured Medical (General) History Medical History History ICD Code Problems: Generalized anxiety disorder Insomnia disorder related to another men geronimo disorder Major depression in full remission ,
--- OUTSIDE RECORDS SUMMARY | 2025-09-13 12:22 | XMS_ITS ---
Author Organization Unknown ENCOUNTERS Encounter Performer Location Date Diagnosis [place] [address] [id number] [place] [address] [id number] [place] [address] [id number] [place] [address] [id number] [facility] Pre Admit [place] [id number] [id number] *Note: Encounters from your own facility or health system may be excluded. Allergies, Adverse Reactions, Alerts Allergen Type Severity Identification Date fluoxetine drug allergy 4 [id number] Medications Name Date Quantity Days Supplied [facility] Number
[2025-09-13 12:44] LABS: EDCOVIDSCREEN Positive (Negative); EDINFLUASCREEN Negative (Negative); EDINFLUBSCREEN Negative (Negative)
--- NOTE | 2025-09-13 13:13 | ED_ITS ---
HPI - URI/Sore Throat General Chief Complaint: Upper Respiratory Infection Stated Complaint: covid positive Source: patient and RN notes reviewed Mode of arrival: ambulatory Limitations: no limitations History of Present Illness HPI Narrative: 60-year-old female presents to the [facility] complaining of tested positive for COVID. Said her symptoms started 5 days ago. Patient reports cough, congestion, body aches. Patient denies any other symptoms, denies any fevers, chest pain, difficulty breathing, wheezing, nausea vomiting, diarrhea, or any other symptoms. Patient took some ibuprofen was symptoms. Patient wants another COVID test to confirm diagnosis. Related Data Allergies Allergy/AdvReac Type Severity Reaction Status Date / Time fluoxetine (From [facility]) Allergy Severe hives Verified 09/13/25 12:28 Review of Systems Review of Systems: CONSTITUTIONAL: Denies fever, chills, or sweats. Positive for body aches. EYES: Denies visual changes, redness, or discharge. ENT: Denies rhinorrhea, sore throat, or otalgia. Positive for congestion. CARDIOVASCULAR: Denies chest pain, palpitations, or edema. RESPIRATORY: Positive for cough. Negative for wheezing or dyspnea. GASTROINTESTINAL: Denies abdominal pain, nausea, vomiting, or diarrhea. GENITOURINARY: Denies dysuria or hematuria. SKIN: Denies rash or itching. MUSCULOSKELETAL: Denies back pain, joint pain, or myalgia. NEUROLOGIC: Denies headache, numbness, or weakness. PSYCHIATRIC: Denies anxiety or depression. All other systems reviewed are negative, except as documented in HPI. [facility] Past Medical History Medical History Hearing loss Insomnia Binge eating History of tobacco use Anxiety and depression History of alcohol abuse Surgical History Surgical History History of cataract removal with insertion of prosthetic lens left 04/2025 right 06/03/2025 Family History Family History Father Lung cancer Grandparent Brain cancer Grandparent Malignant neoplasm of prostate Grandparent Lung cancer Sibling Acute myocardial infarction Social History Social History Smoking status: Former smoker Comments At the time of my signature, I reviewed and agree with the nursing past medical, surgical, social, and family history. There is no relevant family history pertinent to the patient complaint. Exam Narrative: GENERAL: This is a well-nourished, well-developed adult, in no apparent distress. They are non ill-appearing, nontoxic appearing. HEAD: normocephalic, atraumatic. EYES: Sclera clear/white. Conjunctiva normal. Vision is grossly intact. Extraocular movements intact EARS: External ears normal, auditory canals clear and without drainage, TMs normal without perforation. Hearing grossly intact. NOSE: External nose normal with no obvious nasal discharge, nasal turbinates erythematous, no rhinorrhea. THROAT: Mucous membranes moist, posterior pharynx erythematous with PND. Uvula midline. NECK: Neck supple, non-tender without lymphadenopathy, masses or thyromegaly. CARDIOVASCULAR: Regular rate and rhythm without murmurs, gallops, or rubs. RESPIRATORY: Clear to auscultation. Breath sounds equal bilaterally. No wheezes, rales, or rhonchi. SKIN: warm, Dry, intact with no suspicious lesions or rash, good texture and turgor. NEURO: awake, alert, and oriented to person, place and time. There were no obvious focal neurologic abnormalities. EXTREMITIES: No joint tenderness, effusion, or edema noted. BACK: Nontender without deformity. No CVA tenderness. Course Course Level of Care: Express Care Visit Vital Signs Vital signs: Vital Signs Temperature 98.3 F 09/13/25 12:22 Pulse Rate 64 09/13/25 12:22 Respiratory Rate 14 09/13/25 12:22 Blood Pressure 128/86 09/13/25 12:22 Pulse Oximetry 100 09/13/25 12:22 Oxygen Delivery Room Air 09/13/25 12:22 Temperature 98.3 F 09/13/25 12:22 Pulse Rate 64 09/13/25 12:22 Respiratory Rate 14 09/13/25 12:22 Blood Pressure 128/86 09/13/25 12:22 Pulse Oximetry 100 09/13/25 12:22 Oxygen Delivery Room Air 09/13/25 12:22 MDM MDM Narrative Medical decision making narrative: Rapid COVID is positive. Negative flu. Patient has no significant past medical problems, no risk factors. Patient nontoxic appearing, no apparent distress. Vital signs hemodynamically stable. Discussed supportive care. Discussed physical exam findings. Advised supportive measures and signs/symptoms to go to the ER. Pt is appropriate for outpt treatment and f/u. Differential Diagnosis Differential Diagnosis: Differential diagnostic considerations for upper respiratory infection include upper respiratory infection, croup, otitis media, sinusitis, viral infection, bronchitis, influenza, pharyngitis, strep, uvulitis, COVID. Lab Data MDM Lab Attestation statement: I personally reviewed the patient's lab results. Labs: Lab Results 09/13/25 Range/Units 12:28 POC Influenza A Ag Negative (Negative) POC Influenza B Ag Negative (Negative) POC SARS CoV-2 Ag Positive (Negative) Critical Care Time Critical Care Time Critical Care Time: No Discharge Plan Discharge Clinical Impression: COVID Patient Disposition: Home Condition: Stable Instructions: Antibiotic Form, COVID-19 (Coronavirus Disease 2019) (ED) Additional Instructions: You should avoid crowds until you are fever free for 24 hours without the use of fever reducing medications, or the symptoms are improved Rest. Drink plenty of fluids. Tylenol or Motrin as needed for pain or fevers. Follow instructions on the bottle. Recommend Flonase spray and Zyrtec (or Claritin/Sofia) for sinus pressure/congestion over the counter Cough syrup may cause drowsiness; avoid driving or take it at night time. Follow up with your primary care provider 3-5 days. Go to the ER for worsening symptoms, difficulty breathing, chest pains, vomiting, weakness, confusion, or serious concerns Patient Language: Greek Prescriptions: No Action sertraline 100 mg tablet 150 mg PO DAILY Qty: 135 1RF trazodone 50 mg tablet 150 mg PO QHS Qty: 270 1RF (DME) Carpal Tunnel Wrist Brance See Rx Instructions .Route .MEDSUPPLY Qty: 1 0RF Rx Instructions: As directed Follow-up/Referrals: Rehan Mancuso MD [Primary Care Provider, [facility]] Time of Disposition: 13:05
== END 2025-09-13 13:10 | disposition home or self-care (01) ==
PROVIDERS: PCP Family Medicine
DX: U07.1 COVID-19 (principal); H91.90 Unspecified hearing loss, unspecified ear; G47.00 Insomnia, unspecified; Z72.0 Tobacco use; F41.8 Other specified anxiety disorders
CPT/HCPCS: 87426; 87804; 99212; G0463